=== PATIENT | male | born 1945 | race Caucasian/White ===

== ENCOUNTER 2018-06-04 10:51 | Outpatient (REF) | payer MEDICARE, BC, SELFPAY ==
[2018-06-04 20:29] LABS: Anion Gap 6.5 mmol/L (3-11); BUN 21 mg/dL (7-18); CO2 27.5 mmol/L (21.0-32.0); CREATININE 0.85 mg/dL (0.70-1.30); Calcium 8.8 mg/dL (8.5-10.1); Chloride 101 mmol/L (98-107); Cholesterol 274 mg/dL (50-200); Glucose 89 mg/dL (70-100); HDL Cholesterol 56 mg/dL (40-60); LDL CHOLESTEROL 207 mg/dL (<100); Potassium 4.3 mmol/L (3.5-5.1); Sodium 135 mmol/L (136-145); Triglyceride 72 mg/dL (30-150)
== END 2018-06-04 11:11 ==
LOC: NCHCN 10:51
PROVIDERS: PCP Internal Medicine; Visit Provider Family Medicine
DX: E78.5 Hyperlipidemia, unspecified (principal)
CPT/HCPCS: 80048; 80061; 83721

== ENCOUNTER 2019-12-06 10:31 | Outpatient (REF) | payer MEDICARE, BC, SELFPAY ==
[2019-12-06 21:40] LABS: Calculated LDL 159 mg/dL (<100); Cholesterol 231 mg/dL (<200); HDL Cholesterol 59 mg/dL (40-60); Triglyceride 66 mg/dL (<150)
[2019-12-07 21:48] LABS: Anion Gap 12.7 mmol/L (3-11); BUN 23 mg/dL (7-18); CO2 27.3 mmol/L (21.0-32.0); CREATININE 0.93 mg/dL (0.70-1.30); Calcium 8.8 mg/dL (8.5-10.1); Chloride 101 mmol/L (98-107); Glucose 91 mg/dL (74-106); Potassium 4.2 mmol/L (3.5-5.1); Sodium 141 mmol/L (136-145)
== END 2019-12-06 10:51 ==
LOC: NCHCN 10:31
PROVIDERS: PCP Internal Medicine; Visit Provider Nurse Practitioner Family
DX: E78.5 Hyperlipidemia, unspecified (principal); I10 Essential (primary) hypertension
CPT/HCPCS: 80048; 80061

== ENCOUNTER 2020-02-17 13:36 | Outpatient (REF) | payer MEDICARE, BC, SELFPAY ==
[2020-02-17 21:34] LABS: Calculated LDL 121 mg/dL (<100); Cholesterol 186 mg/dL (<200); HDL Cholesterol 56 mg/dL (40-60); Triglyceride 48 mg/dL (<150)
== END 2020-02-17 13:56 ==
LOC: NCHCN 13:36
PROVIDERS: PCP Internal Medicine; Visit Provider Nurse Practitioner Family
DX: E78.5 Hyperlipidemia, unspecified (principal); I10 Essential (primary) hypertension
CPT/HCPCS: 80061

== ENCOUNTER 2021-09-09 16:56 | Outpatient (REF) | payer MEDICARE, BC, SELFPAY ==
[2021-09-09 15:25] LABS: ALT 32 U/L (16-63); AST 25 U/L (15-37); Albumin 3.6 g/dL (3.4-5.0); Alkaline Phosphatase 70 U/L (46-116); Anion Gap 6.6 mmol/L (3-11); BUN 19 mg/dL (7-18); Bilirubin, Total 0.5 mg/dL (0.2-1.0); CO2 30.4 mmol/L (21.0-32.0); CREATININE 0.9 mg/dL (0.70-1.30); Calcium 8.9 mg/dL (8.5-10.1); Chloride 104 mmol/L (98-107); Glucose 86 mg/dL (74-106); Potassium 4.1 mmol/L (3.5-5.1); Sodium 141 mmol/L (136-145); Total Protein 6.6 g/dL (6.4-8.2)
[2021-09-09 15:42] LABS: Calculated LDL 134 mg/dL (<100); Cholesterol 206 mg/dL (<200); HDL Cholesterol 59 mg/dL (40-60); Triglyceride 69 mg/dL (<150)
== END 2021-09-09 16:57 | disposition home or self-care (01) ==
LOC: NCHCN 16:56
PROVIDERS: PCP Internal Medicine; Visit Provider Family Medicine
DX: E78.5 Hyperlipidemia, unspecified (principal); I10 Essential (primary) hypertension
CPT/HCPCS: 80053; 80061

== ENCOUNTER 2023-12-22 18:49 | Outpatient (REF) | payer MEDICARE, BC, SELFPAY ==
[2023-12-22 21:09] LABS: HCT 41.6 % (40.0-50.0); HGB 14.4 g/dL (13.5-17.5); MCH 28.8 pg (27.0-33.0); MCHC 34.6 % (32.0-36.0); MCV 83 fL (80-95); MPV 12.1 fL (8.0-11.0); Platelet Count 172 10^3/uL (130-400); RDW 13.2 % (11.8-14.1); RDW-SD 40.2 fL; WBC 6.86 10^3/uL (4.4-10.8)
[2023-12-22 21:44] LABS: ALT 22 U/L (16-63); AST 24 U/L (15-37); Albumin 3.9 g/dL (3.4-5.0); Alkaline Phosphatase 75 U/L (46-116); Anion Gap 8.9 mmol/L (3-11); BUN 17 mg/dL (7-18); Bilirubin, Total 0.7 mg/dL (0.2-1.0); CO2 27.1 mmol/L (21.0-32.0); CREATININE 0.9 mg/dL (0.70-1.30); Calcium 9.1 mg/dL (8.5-10.1); Calculated LDL 119 mg/dL (<100); Chloride 104 mmol/L (98-107); Cholesterol 205 mg/dL (<200); Estimated GFR 87.96 (mL/min/1.73m2); Glucose 124 mg/dL (74-106); HDL Cholesterol 69 mg/dL (40-60); Potassium 3.9 mmol/L (3.5-5.1); Sodium 140 mmol/L (136-145); TSH (W/Ref FT4) 1.31 uIU/mL (0.36-3.74); Total Protein 6.8 g/dL (6.4-8.2); Triglyceride 88 mg/dL (<150)
== END 2023-12-22 18:50 | disposition home or self-care (01) ==
LOC: NCHCN 18:49
PROVIDERS: PCP Internal Medicine; Visit Provider Family Medicine
DX: E78.5 Hyperlipidemia, unspecified (principal); R53.83 Other fatigue
CPT/HCPCS: 80053; 80061; 85027; 84443

== ENCOUNTER 2025-01-13 12:09 | Outpatient (REF) | payer MEDICARE, BC, SELFPAY ==
[2025-01-13 15:45] LABS: Anion Gap 5.8 mmol/L (3-11); BUN 19 mg/dL (7-18); CO2 29.2 mmol/L (21.0-32.0); Calcium 9.1 mg/dL (8.5-10.1); Calculated LDL 115 mg/dL (<100); Chloride 104 mmol/L (98-107); Cholesterol 191 mg/dL (<200); Estimated GFR 77.04 (mL/min/1.73m2); Glucose 94 mg/dL (74-106); HDL Cholesterol 67 mg/dL (>or=40); Potassium 4.1 mmol/L (3.5-5.1); Sodium 139 mmol/L (136-145); Triglyceride 46 mg/dL (<150)
== END 2025-01-13 12:10 | disposition home or self-care (01) ==
LOC: NCHCN 12:09
PROVIDERS: PCP Internal Medicine; Visit Provider Family Medicine
DX: I10 Essential (primary) hypertension (principal); E78.49 Other hyperlipidemia
CPT/HCPCS: 80048; 80061

== ENCOUNTER 2025-02-16 18:19 | Outpatient (REF) | payer MEDICARE, BC, SELFPAY ==
[2025-02-17 19:20] LABS: PSA, Screening 0.7 ng/mL (<=6.5)
== END 2025-02-16 18:20 | disposition home or self-care (01) ==
LOC: NCHCN 18:19
PROVIDERS: PCP Internal Medicine; Visit Provider Physician Assistant
DX: Z12.5 Encounter for screening for malignant neoplasm of prostate (principal)
CPT/HCPCS: 84153